=== PATIENT | female | born 1965 | race Caucasian/White ===

== ENCOUNTER 2016-11-23 11:10 | Emergency (ER) | payer OTHER, MEDICAID ==
[~2016-11-23] VITALS: Ht 152.4 cm; Wt 74.0 kg
[~2016-11-23 11:10] MED LIST: AZIT500T2 PO
[2016-11-23 11:16] VITALS: Ht 152.4 cm; Wt 74.0 kg
[2016-11-23] MEDS ORDERED: ALBUTEROL 0.5% (NEB) 2.5 MG/0.5 ML AMP INH STA (11:26)
[2016-11-23] MEDS ORDERED: DEXAMETHASONE 10 MG/ML 1 ML INJ IM STA (11:26)
[2016-11-23] MEDS ORDERED: IPRATROPIUM (NEB) 0.5 MG/2.5 ML AMP INH STA (11:26)
--- NOTE | 2016-11-23 11:56 | ERD ---
ER Documentation Chief Complaint Date/Time DATE: 11/23/16 TIME: 11:54 Chief Complaint cough/chest congestion x 2 months HPI This is a 51-year-old female who presents the emergency department today for cough and chest congestion for the past 2 months. States the cough is worse at night. States she has had some phlegm. She also has some nasal congestion. States that 2 weeks ago she went to her primary care doctor and was given azithromycin. States that she followed up again with her primary care doctor today and was told to come to the ER for further evaluation and management and a chest x-ray for concern for pneumonia. Patient has also tried some Robitussin. Denies any fevers or chills. ROS All systems reviewed and are negative except as per history of present illness. Medications Home Meds Active Scripts Fluticasone Propionate (Flonase Allergy Relief) 9.9 Ml [place].susp, 2 SPRAY NASAL DAILY, #1 BOTTLE TO EACH NOSTRIL Prov:ALPESH LITTLEJOHN PA-C 11/23/16 Cetirizine Hcl* (Zyrtec*) 10 Mg Capsule, 10 MG PO DAILY, #14 TAB.CHEW Prov:ALPESH LITTLEJOHN PA-C 11/23/16 Prednisone* (Prednisone*) 20 Mg Tab, 40 MG PO DAILY for 4 Days, TAB Prov:ALPESH LITTLEJOHN PA-C 11/23/16 Albuterol Sulfate* (Proair HFA*) 8.5 Gm Hfa.aer.ad, 2 PUFF INH Q4, #1 INHALER Prov:ALPESH LITTLEJOHN PA-C 11/23/16 Azithromycin* (Zithromax* Tri-Andrea) 500 Mg Tablet, 500 MG PO DAILY for 3 Days, # 1 PACKET Prov:AYDEE ESCOBAR 12/18/15 Allergies Allergies: Coded Allergies: acetaminophen (Verified Adverse Reaction, Mild, NAUSEA AND VOMITING, ) codeine (Verified Adverse Reaction, Mild, NAUSEA AND VOMITING, 11/23/16) PMhx/Soc History of Surgery: Yes (TUBAL LIGATION) Anesthesia Reaction: No Hx Neurological Disorder: No Hx Respiratory Disorders: Yes (ASTHMA) Hx Cardiac Disorders: No Hx Psychiatric Problems: No Hx Miscellaneous Medical Probl: No Hx Alcohol Use: Yes (OCCASIONAL) Hx Substance Use: Yes Hx Tobacco Use: No Physical Exam Vitals Vital Signs Date Time Temp Pulse Resp B/P Pulse Ox O2 Delivery O2 Flow Rate FiO2 11/23/16 13:32 104 20 94 Room Air 11/23/16 11:55 95 18 95 21 11/23/16 11:16 98.8 97 20 178/95 96 Physical Exam Const: NAD Head: Atraumatic Eyes: Normal Conjunctiva ENT: TMs normal. Nose no drainage. Throat no erythema no exudate Neck: Full range of motion..~ No meningismus. Resp: Diffuse wheezing bilaterally in all lung marroquin. Cardio: Regular rate and rhythm, no murmurs Abd: Soft, non tender, non distended. Normal bowel sounds Skin: No petechiae or rashes Back: No midline or flank tenderness Ext: No cyanosis, or edema Neur: Awake and alert Psych: Normal Mood and Affect Results 24 hrs Current Medications Medications (Trade) Dose Ordered Sig/Rojas Route PRN Reason Start Time Stop Time Status Last Admin Dose Admin Albuterol (Proventil 0.5% (Neb)) 10 mg ONCE STAT INH 11/23/16 11:26 11/23/16 11:29 DC 11/23/16 11:54 Ipratropium [place] (Atrovent 0.02% (Neb)) 1 mg ONCE STAT INH 11/23/16 11:26 11/23/16 11:29 DC 11/23/16 11:54 Dexamethasone (Decadron) 10 mg ONCE STAT IM 11/23/16 11:26 11/23/16 11:29 DC 11/23/16 11:49 DIAGNOSTIC IMAGING REPORT Patient: LITTLE GARCÍA : 1965 Age: 51 Sex: F MR #: [id number] DOS: 11/23/16 1126 Ordering MD: ALPESH LITTLEJOHN PA-C Location: [facility] Room/Bed: PROCEDURE: XR Chest. CLINICAL INDICATION: chest pain, asthma TECHNIQUE: Single frontal view of the chest was obtained COMPARISON: 12/17/2015 FINDINGS: The heart and mediastinum are within normal limits. The lungs are clear. There is no pleural effusion or pneumothorax. RPTAT: AA IMPRESSION: No acute disease. .Rosalio Brannon MD, MD Date Time Electronically viewed and signed by .Rosalio Brannon MD, MD on 11/23/2016 11: 55 .S/ CC: ALPESH LITTLEJOHN PA-C Procedures/MDM This is a 51-year-old female presents the emergency department today complaining of cough and congestion for the past 2 months. Patient is ready taken a course of azithromycin 2 weeks ago. She is afebrile and otherwise well- appearing here in the emergency department. Her oxygen saturation 96% however on physical exam she had diffuse wheezing bilaterally in all lung marroquin. She was therefore given a 1 hour continuous breathing treatment and Decadron here in the emergency department. I did also obtain a chest x-ray at the request of the patient's primary care physician. Chest x-ray shows the lungs are clear. There is no pleural effusion or pneumothorax. There is no acute disease. Low suspicion for pneumonia, PE, abscess, pleural effusion. Symptoms at this time is consistent with cough and URI likely viral versus bronchitis. I have low suspicion for strep pharyngitis, peritonsillar abscess , retropharyngeal abscess, otitis media, PNA, pertussis, sinusitis, abscess, meningitis, sepsis, or other acute infectious bacterial process. Patient was reevaluated discharges patient stated that she did not feel well and was still coughing. Patient did continue to have some wheezing diffusely on physical exam. Her oxygen saturation was 92-97%. Patient is talking in full sentences. He did not feel that she requires admission at this time. I did discuss the patient with Dr. Cooley and he has seen and evaluated the patient and is in agreement that he feels that the patient is stable for discharge and outpatient management. Patient was given a prescription for albuterol, short course of prednisone, Zyrtec and Flonase. At this time the patient is stable for discharge and outpatient management. They should follow up with their PCP in the next 1-2. They may return to the emergency department sooner if symptoms persist or worsen. Patient understood and agreed with the plan. Departure Diagnosis: Primary Impression: Cough Condition: Fair ALPESH LITTLEJOHN PA-C Nov 23, 2016 11:56
[2016-11-23] MEDS ORDERED: PRED20TA PO (13:52)
[2016-11-23] MEDS ORDERED: ALBU8.5H3 INH (13:52)
[2016-11-23] MEDS ORDERED: CETI10CA PO (13:53)
[2016-11-23] MEDS ORDERED: FLUT9.9S NASAL (13:53)
[2016-11-23 14:07] VITALS: BP 126/70; PULSE 86; RESP 20; TEMP 98.7
[2016-11-23] MEDS ORDERED: UDROBDM PO (14:11)
== END 2016-11-23 14:07 | disposition home or self-care (01) ==
LOC: FTE 11:10
DX: R05 Cough (principal); J45.909 Unspecified asthma, uncomplicated
CPT/HCPCS: 71010; 94644; 96372; 99284; J1100

== ENCOUNTER 2016-12-18 10:08 | Emergency (ER) | payer OTHER, MEDICAID ==
[~2016-12-18] VITALS: Ht 152.4 cm; Wt 74.5 kg
[~2016-12-18 10:08] MED LIST changes: +ALBU8.5H3 INH; +CETI10CA PO; +FLUT9.9S NASAL; +PRED20TA PO; +UDROBDM PO
[2016-12-18 10:11] VITALS: Ht 152.4 cm; Wt 74.5 kg
[2016-12-18] MEDS ORDERED: ALBUTEROL 0.083% (NEB) 2.5 MG/3 ML AMP HHN STA (10:45)
[2016-12-18] MEDS ORDERED: IPRATROPIUM (NEB) 0.5 MG/2.5 ML AMP HHN ONE (11:00)
[2016-12-18] MEDS ORDERED: predniSONE 20 MG TAB PO ONE (11:00)
--- NOTE | 2016-12-18 11:43 | RADRPT ---
PROCEDURE: XR Chest PA CLINICAL INDICATION: Cough, fever TECHNIQUE: An PA radiograph of the chest was submitted. COMPARISON: 11/23/2016 FINDINGS: Cardiovascular: The cardiovascular silhouette appears unremarkable. Lung Marroquin: The lung marroquin appear clear with no nodule, alveolar infiltrate, or interstitial promi nence evident. Pleural Spaces: There is no pneumothorax or pleural fluid accumulation evident. Osseous Structures: The osseous structures appear intact. Soft Tissues: The soft tissues appear unremarkable. IMPRESSION: Stable and unremarkable PA chest. Physician Mely Date Time Electronically viewed and signed by Zamzam Lopez Physician on 12/18/2016 11:42 RH/
[2016-12-18] MEDS ORDERED: AZIT250T94 PO (12:07)
[2016-12-18] MEDS ORDERED: PRED20TA PO (12:07)
[2016-12-18] MEDS ORDERED: BUDE6HFA INHALATION (12:07)
[2016-12-18] MEDS ORDERED: GUAI1TBM PO (12:07)
--- NOTE | 2016-12-18 12:11 | ERD ---
ER Documentation Chief Complaint Chief Complaint cough x 1 month HPI This 51-year-old female presents with a cough for last month. She had normal x- ray 3 weeks ago. She has wheezing. She has been prescribed antibiotics, Ventolin without relief. She denies any chest pain. She feels possible tactile fevers at home but no measured temperature. She has no history of vomiting, abdominal pain. She denies any allergies. ROS All systems reviewed and are negative except as per history of present illness. Medications Home Meds Active Scripts Azithromycin* (Zithromax*) 250 Mg Tablet, 250 MG PO .ZPACK DIRECTED, #6 TAB TAKE 500 MG (2 TABS) THE FIRST DAY THEN 250 MG (1 TAB) DAYS 2-5 Prov:PANCHO HAY MD 12/18/16 Budesonide-Formoterol Fumarate* (Symbicort*) 160-4.5 Hfa.aer.ad, 2 PUFF INHALATION BID for 14 Days, #1 EACH Prov:PANCHO HAY MD 12/18/16 Guaifenesin/Dextromethorphan (Mucinex Dm ER 1,200-60 mg Tab) 1 Each Tbmp.12hr, 1 EACH PO BID, #20 TAB Prov:PANCHO HAY MD 12/18/16 Prednisone* (Prednisone*) 20 Mg Tab, 40 MG PO DAILY for 4 Days, TAB Start December 19, 2016 Prov:PANCHO HAY MD 12/18/16 Guaifenesin-Dextromethorphan* (Robitussin* DM) 100MG/10MG/5ML Syrup, 10 ML PO Q4H Y for COUGH for 5 Days, ML Prov:ALPESH LITTLEJOHN PA-C 11/23/16 Fluticasone Propionate (Flonase Allergy Relief) 9.9 Ml [place].susp, 2 SPRAY NASAL DAILY, #1 BOTTLE TO EACH NOSTRIL Prov:ALPESH LITTLEJOHN PA-C 11/23/16 Cetirizine Hcl* (Zyrtec*) 10 Mg Capsule, 10 MG PO DAILY, #14 TAB.CHEW Prov:ALPESH LITTLEJOHN PA-C 11/23/16 Prednisone* (Prednisone*) 20 Mg Tab, 40 MG PO DAILY for 4 Days, TAB Prov:ALPESH LITTLEJOHN PA-C 11/23/16 Albuterol Sulfate* (Proair HFA*) 8.5 Gm Hfa.aer.ad, 2 PUFF INH Q4, #1 INHALER Prov:ANNETTAALPESH Simental PA-C 11/23/16 Azithromycin* (Zithromax* Tri-Andrea) 500 Mg Tablet, 500 MG PO DAILY for 3 Days, # 1 PACKET Prov:AYDEE ESCOBAR 12/18/15 Allergies Allergies: Coded Allergies: acetaminophen (Verified Adverse Reaction, Mild, NAUSEA AND VOMITING, 12/18) codeine (Verified Adverse Reaction, Mild, NAUSEA AND VOMITING, 11/23/16) PMhx/Soc History of Surgery: Yes (TUBAL LIGATION) Anesthesia Reaction: No Hx Neurological Disorder: No Hx Respiratory Disorders: Yes (ASTHMA) Hx Cardiac Disorders: No Hx Psychiatric Problems: No Hx Miscellaneous Medical Probl: No Hx Alcohol Use: Yes (OCCASIONAL) Hx Substance Use: No Hx Tobacco Use: No Smoking Status: Never smoker Physical Exam Vitals Vital Signs Date Time Temp Pulse Resp B/P Pulse Ox O2 Delivery O2 Flow Rate FiO2 12/18/16 11:29 89 24 93 21 12/18/16 10:11 98.2 102 20 138/86 95 Physical Exam Const: [], [id number]. Head: Atraumatic Eyes: Normal Conjunctiva ENT: Normal External Ears, Nose and Mouth. Neck: Full range of motion..~ No meningismus. Resp: Clear to auscultation bilaterally with coarse breath sounds diffusely without retractions or rales. Cardio: Regular rate and rhythm, no murmurs Abd: Soft, non tender, non distended. Normal bowel sounds Skin: No petechiae or rashes Back: No midline or flank tenderness Ext: No cyanosis, or edema Neur: Awake and alert Psych: Normal Mood and Affect Results 24 hrs Current Medications Medications (Trade) Dose Ordered Sig/Rojas Route PRN Reason Start Time Stop Time Status Last Admin Dose Admin Prednisone (Prednisone) 60 mg ONCE ONCE PO 12/18/16 11:00 12/18/16 11:01 DC 12/18/16 10:52 Albuterol (Proventil 0.083% (Neb)) 5 mg ONCE STAT HHN 12/18/16 10:45 12/18/16 10:48 DC 12/18/16 11:28 Ipratropium [place] (Atrovent 0.02% (Neb)) 0.5 mg ONCE ONCE HHN 12/18/16 11:00 12/18/16 11:01 DC 12/18/16 11:28 Procedures/MDM She was given albuterol treatment and prednisone 60 mg by mouth. Chest X-ray 1V Interpreted by me: Soft Tissue: No acute abnormalities Bones: No acute abnormalities Mediastinum/Cardiac Silhouette/Lungs: [No acute abnormalities] impression- normal 1 view chest x-ray Resents with coughing wheezing and coarse breath sounds for last month. She may have a lingering viral illness. Current signs or symptoms do not suggest tuberculosis, pneumonia, hypoxemia, respiratory distress, PE' EKG: Rate/Rhythm: [Normal Sinus Rhythm] QRS, ST, T-waves: [No changes consistent w/ acute ischemia] Impression: Left bundle branch block with nonspecific ST changes. No evidence of acute ischemia or arrhythmia. Patient will be treated with Zithromax, prednisone, Symbicort primary care follow-up and recommendations for pulmonary evaluation. Advised to recheck for blood, shortness breath, anterior chest pain, new worsening symptoms or primary care doctor. Departure Diagnosis: Primary Impression: Cough Condition: Stable Patient Instructions: Cough, Chronic, Uncertain Cause, (Adult) Referrals: CECILIA ALLEN MD, [facility] Additional Instructions: X RAY normal hoy. Cheque otro vez con carreon doctor primario en el proximo cook or regresa para mas o nueva simptomas. PANCHO HAY MD Dec 18, 2016 12:11
[2016-12-18 12:20] VITALS: BP 138/78; PULSE 92; RESP 20; TEMP 98
== END 2016-12-18 12:20 | disposition home or self-care (01) ==
LOC: FTE 10:08
DX: R05 Cough (principal); J45.901 Unspecified asthma with (acute) exacerbation
CPT/HCPCS: 71010; 93005; 94664; 99284; J7512